=== PATIENT | male | born 1950 | race Caucasian/White ===

== ENCOUNTER 2021-10-10 04:16 | Day surgery (SDC) | payer OTHER ==
[2021-10-09 07:43] VITALS: BMI 29.0
[2021-10-10 10:01] VITALS: TEMP 97
[2021-10-10 10:02] VITALS: RESP 18
[2021-10-10 11:57] VITALS: BP 132/59; PULSE 73
== END 2021-10-10 11:10 | disposition home or self-care (01) ==
LOC: JASU-ENDO 04:16
PROVIDERS: ATTEND Internal Medicine Gastroenterology
PROC: 0DJD8ZZ Inspection of Lower Intestinal Tract, Via Natural or Artificial Opening Endoscopic (ICD-10-PCS; principal; 2021-10-10 09:00)
DX: Z12.11 Encounter for screening for malignant neoplasm of colon (principal); R19.5 Other fecal abnormalities; Z86.010 Personal history of colon polyps

== ENCOUNTER 2021-11-06 00:38 | Inpatient (IN) | payer OTHER, MEDICARE ==
[2021-11-06] MEDS ORDERED: LACTATED RINGERS SOLUTION 1,000 ML IV STA (01:03)
[2021-11-06] MEDS ORDERED: ACETAMINOPHEN 1000 MG/100 ML BAG IVPB ONE (01:03)
[2021-11-06] MEDS ORDERED: FAMOTIDINE 20 MG/50 ML IVPB 20 MG/50 ML MG IVPB ONE ×2 (01:03→01:22)
[2021-11-06] MEDS ORDERED: MAG HYDROX/AL HYDROX/SIMETH -MYLANTA- ORAL SUSPENSION PO ONE (01:04)
[2021-11-06 01:13] VITALS: BMI 28.3
[2021-11-06] MEDS ORDERED: ACETAMINOPHEN INJECTION 100 ML IVPB ONE (01:21)
[2021-11-06] MEDS ORDERED: MAG HYDROX/AL HYDROX/SIMETH 30 ML UNIT-DOSE CUP ONE ×2 (01:21→12:04)
[2021-11-06 03:29] LABS: BASO % 0.2 % (0-2.0); HEMATOCRIT 47.2 % (35.4-49); LYMPH % 10.2 % (8-40); MCH 30.9 pg (25.7-33.7); MEAN CELL VOLUME 90.9 fl (80-96); MEAN PLT VOLUME 7.6 fl (7.5-11.1); MONO % 7.5 % (3.8-10.2); NEUT % 81.1 % (42.8-82.8); PLATELET COUNT 259 10^3/uL (134-434); RBC 5.19 M/mm3 (4.00-5.60); RDW 14.1 % (11.9-15.9); WHITE BLOOD COUNT 9.2 K/mm3 (4.0-10.0)
[2021-11-06 03:48] LABS: CALCIUM 9.6 mg/dL (8.5-10.1)
[2021-11-06 03:49] LABS: ALBUMIN 3.4 g/dl (3.4-5.0); BLOOD UREA NITROGEN 17.9 mg/dL (7-18)
[2021-11-06 03:52] LABS: CREATININE 0.9 mg/dL (0.55-1.3); PHOSPHOROUS 3.1 mg/dL (2.5-4.9)
[2021-11-06 03:53] LABS: BILIRUBIN,TOTAL 1.1 mg/dL (0.2-1)
[2021-11-06 04:51] LABS: URINE APPEARANCE CLEAR; URINE BILIRUBIN NEGATIVE (NEGATIVE); URINE COLOR YELLOW; URINE GLUCOSE (UA) NEGATIVE (NEGATIVE); URINE KETONE NEGATIVE (NEGATIVE); URINE LEUK ESTERASE NEGATIVE (NEGATIVE); URINE NITRITE NEGATIVE (NEGATIVE); URINE PROTEIN NEGATIVE (NEGATIVE); URINE UROBILINOGEN 0.2 mg/dL (0.2-1.0)
[2021-11-06 06:35] VITALS: TEMP 98.5
[2021-11-06] MEDS ORDERED: MAG HYDROX/AL HYDROX/SIMETH 30 ML UNIT-DOSE CUP PO PRN (09:33)
[2021-11-06] MEDS ORDERED: ENOXAPARIN NA (PORCINE) 40 MG/0.4 ML DISP.SYRIN SQ ONE (09:50)
[2021-11-06] MEDS ORDERED: ENOXAPARIN NA (PORCINE) 40 MG/0.4 ML DISP.SYRIN SQ SCH (10:00)
[2021-11-06 10:24] LABS: CALCIUM 8.9 mg/dL (8.5-10.1)
[2021-11-06 10:29] LABS: CREATININE 0.8 mg/dL (0.55-1.3)
[2021-11-06 12:10] VITALS: BP 123/78; PULSE 86; RESP 16
== END 2021-11-06 12:10 | disposition home or self-care (01) | DRG 392 ==
LOC: JER 00:38 → JERBED 09:43
PROVIDERS: ADMIT Internal Medicine; ATTEND Internal Medicine
DX: R10.9 Unspecified abdominal pain (principal); E78.5 Hyperlipidemia, unspecified; I99.8 Other disorder of circulatory system; R94.5 Abnormal results of liver function studies; I10 Essential (primary) hypertension; R74.01 Elevation of levels of liver transaminase levels; R14.0 Abdominal distension (gaseous)
CPT/HCPCS: 36415; 74177-TC; 76705-TC; 80053; 81003; 83605; 83690; 83735; 84100; 84484; 85025; 86704; 86705; 86708; 86803; 87086; 87340; 93005; 93010; 99285-25; C9803-CS; Q9967; U0003; U0005